=== PATIENT | female | born 1990 | race American Indian/Alaskan Native ===

== ENCOUNTER 2016-10-23 11:15 | Emergency (ER) | payer MEDICAID ==
[2016-10-23 13:09] LABS: Basophils % (Auto) 0.3 % (0.0-1.8); Eosinophils % (Auto) 1.3 % (0.0-4.3); Hematocrit 39.7 % (30.3-42.9); Hemoglobin 12.9 gm/dl (10.1-14.3); Mean Corpuscular HGB Conc 32 % (30-34); Mean Corpuscular Hemoglobin 26 pg (28-32); Mean Corpuscular Volume 81 fl (79-97); Platelet Count 196 K/mm3 (140-440); White Blood Count 10.3 K/mm3 (4.5-11.0)
[2016-10-23 13:41] LABS: Anion Gap 20 mmol/L; BUN/Creatinine Ratio 11.66; Blood Urea Nitrogen 7 mg/dL (7-17); Calcium 9.5 mg/dL (8.4-10.2); Carbon Dioxide 23 mmol/L (22-30); Chloride 100.2 mmol/L (98-107); Glucose 94 mg/dL (65-100); Potassium 3.8 mmol/L (3.6-5.0); Sodium 139 mmol/L (137-145)
[2016-10-23 13:52] LABS: Bilirubin,Urine NEG (Negative); Blood,Urine NEG (Negative); Ketones,Urine TR mg/dL (Negative); Leukocyte Esterase,Urine TR (Negative); Mucus,Urine 3+ /HPF; Nitrite,Urine NEG (Negative); Urobilinogen,Urine < 2.0 mg/dL (<2.0)
--- NOTE | 2016-10-23 16:45 | Ultrasound Report ---
Transabdominal and transvaginal OB ultrasound. History: Pelvic pain/syncope. Findings: A single intrauterine is identified with a crown-rump length measuring 9.6 mm which corresponds to gestational age of 7 weeks. There is a small subchorionic hemorrhage. The heart rate is 131 beats per minute. The left ovary is normal. There is a 2.0 cm in diameter complex area in the right ovary. There is no free fluid. Impression: Viable IUP at 7 weeks gestation. A very small subchorionic hemorrhage is present.
[2016-10-23] MEDS ORDERED: NACL 0.9% 1000 ML 1,000 ML IV ONE (17:39)
[2016-10-23] MEDS ORDERED: ZOFRAN IV ONE (17:39)
--- NOTE | 2016-10-23 17:44 | Emergency Department Report ---
ED Syncope HPI - General Chief Complaint: Syncope Stated Complaint: /NAUSEA/VOMITING Source: patient Exam Limitations: no limitations - History of Present Illness Initial Comments: 26-year-old female here with syncopal episode at work. Patient states she 's been feeling lightheaded all day. She has not been able tolerate anything by by mouth and has been vomiting. She has had hyperemesis with prior pregnancies. She complains of some intermittent left crampy abdominal pain. Denies fevers chills. She is not vomited since she's been here in the emergency department. She's had no vaginal bleeding. Timing/Prior Episodes: no prior history Precipitating Factors: Positive: lightheadedness, nausea, rapid heart beat. Negative: blurred vision, confusion Loss of Consciousness: brief (seconds) Current Symptoms: back to normal - Related Data Allergies/Adverse Reactions: Allergies No Known Allergies Allergy (Verified 03/06/14 01:34) Home Medications: Ambulatory Orders Acetaminophen/Codeine [Tylenol #3] 1 tab PO Q6H PRN #20 tab 11/06/15 Ondansetron [Zofran TAB] 4 mg PO Q8HR PRN #10 tablet 10/23/16 ED Review of Systems ROS: Stated complaint: /NAUSEA/VOMITING Other details as noted in HPI Comment: All other systems reviewed and negative Respiratory: denies: cough, orthopnea Cardiovascular: syncope. denies: chest pain, palpitations Gastrointestinal: nausea, vomiting ED Past Medical Hx - Past Medical History Hx Hypertension: No Hx Congestive Heart Failure: No Hx Diabetes: No Hx Deep Vein Thrombosis: No Hx Renal Disease: No Hx Sickle Cell Disease: No Hx Seizures: No Hx Asthma: No Hx COPD: No Hx HIV: No - Surgical History Additional Surgical History: - Social History Smoking Status: Never Smoker Substance Use Type: None - Medications Home Medications: Home Medications Medication Instructions Recorded Confirmed Last Taken Type Acetaminophen/Codeine [Tylenol #3] 1 tab PO Q6H PRN #20 tab 11/06/15 Unknown Rx Ondansetron [Zofran TAB] 4 mg PO Q8HR PRN #10 tablet 10/23/16 Unknown Rx ED Physical Exam - General Limitations: No Limitations General appearance: alert, in no apparent distress - Head Head exam: Present: atraumatic, normocephalic - Eye Eye exam: Present: normal appearance - ENT ENT exam: Present: mucous membranes moist - Neck Neck exam: Present: normal inspection - Respiratory Respiratory exam: Present: normal lung sounds bilaterally. Absent: respiratory distress - Cardiovascular Cardiovascular Exam: Present: regular rate, normal rhythm. Absent: systolic murmur, diastolic murmur, rubs, gallop - GI/Abdominal GI/Abdominal exam: Present: soft, normal bowel sounds - Extremities Exam Extremities exam: Present: normal inspection - Back Exam Back exam: Present: normal inspection - Neurological Exam Neurological exam: Present: alert, oriented X3 - Psychiatric Psychiatric exam: Present: normal affect, normal mood - Skin Skin exam: Present: warm, dry, intact, normal color. Absent: rash ED Course Vital Signs 10/23/16 12:29 Temperature 98.3 F Pulse Rate 90 Respiratory 14 Rate Blood Pressure 120/70 O2 Sat by Pulse 100 Oximetry ED Medical Decision Making - Lab Data Result diagrams: 10/23/16 12:35 10/23/16 12:43 Laboratory Results - last 24 hr 10/23/16 10/23/16 10/23/16 12:35 12:35 12:35 WBC 10.3 RBC 4.90 Hgb 12.9 Hct 39.7 MCV 81 MCH 26 L MCHC 32 RDW 15.0 Plt Count 196 Lymph % (Auto) 23.6 [place] % (Auto) 5.1 Eos % (Auto) 1.3 Baso % (Auto) 0.3 Lymph # 2.4 [place] # 0.5 Eos # 0.1 Baso # 0.0 Seg Neutrophils % 69.7 Seg Neutrophils # 7.2 Sodium Potassium Chloride Carbon Dioxide Anion Gap BUN Creatinine Estimated GFR BUN/Creatinine Ratio Glucose Calcium HCG, Quant 69574 H Urine Color Urine Turbidity Urine pH Ur Specific [place] Urine Protein Urine Glucose (UA) Urine Ketones Urine Blood Urine Nitrite Urine Bilirubin Urine Urobilinogen Ur Leukocyte Esterase Urine WBC (Auto) Urine RBC (Auto) U Epithel Cells (Auto) Urine Mucus Blood Type B NEGATIVE Antibody Screen TNR ZAHRA Antibody Screen Negative 10/23/16 10/23/16 12:43 Unknown WBC RBC Hgb Hct MCV MCH MCHC RDW Plt Count Lymph % (Auto) [place] % (Auto) Eos % (Auto) Baso % (Auto) Lymph # [place] # Eos # Baso # Seg Neutrophils % Seg Neutrophils # Sodium 139 Potassium 3.8 Chloride 100.2 Carbon Dioxide 23 Anion Gap 20 BUN 7 Creatinine 0.6 L Estimated GFR > 60 BUN/Creatinine Ratio 11.66 Glucose 94 Calcium 9.5 HCG, Quant Urine Color [place]cca Urine Turbidity Clear Urine pH 5.0 Ur Specific [place] 1.034 H Urine Protein 30 mg/dl Urine Glucose (UA) Neg Urine Ketones Tr Urine Blood Neg Urine Nitrite Neg Urine Bilirubin Neg Urine Urobilinogen < 2.0 Ur Leukocyte Esterase Tr Urine WBC (Auto) 6.0 Urine RBC (Auto) 4.0 U Epithel Cells (Auto) 2.0 Urine Mucus 3+ Blood Type Antibody Screen ZAHRA Antibody Screen - Medical Decision Making Patient is a 26-year-old with a history of hyperemesis here with nausea vomiting and a syncopal episode. She has a benign exam without any abdominal pain. She does mention some left-sided crampy abdominal pain. She had an ultrasound here that shows an IUP at approximately 7 weeks. There is no intra- abdominal fluid on ultrasound. Her labs are otherwise normal and clinically give her a liter of IV fluid and IV Zofran and anticipate discharge. Portions of this chart were dictated with dictation software. There may be dictation errors contained within this note. Critical care attestation.: If time is entered above; I have spent that time in minutes in the direct care of this critically ill patient, excluding procedure time. ED Disposition Clinical Impression: Hyperemesis affecting , antepartum, Syncope, Hyperemesis Disposition: DC-01 TO HOME OR SELFCARE Is pt being admited?: No Condition: Stable Instructions: Syncope (ED) Additional Instructions: Please follow-up with your OB as scheduled next week. Prescriptions: Ondansetron [Zofran TAB] 4 mg PO Q8HR PRN #10 tablet PRN Reason: Nausea
[2016-10-23 18:59] VITALS: BP 120/74
== END 2016-10-23 18:58 | disposition home or self-care (01) ==
LOC: ED 11:15
DX: O21.0 Mild hyperemesis gravidarum (principal); R55 Syncope and collapse; Z3A.01 Less than 8 weeks gestation of pregnancy
CPT/HCPCS: 36415; 76801; 76817; 80048; 81001; 84702; 85025; 86850; 86900; 86901; 96361; 96374; 99284; J2405; J7030